=== PATIENT | female | born 1980 | race African-American/Black ===

== ENCOUNTER 2017-04-02 13:25 | Emergency (ER) | payer OTHER ==
[~2017-04-02] VITALS: Ht 152.4 cm; Wt 63.5 kg
[~2017-04-02 13:25] MED LIST: ALBUTEROL MININEB NEB; AMITRIPTYLINE H50 MG PO; ASPIRIN EC81 M1 PO; DULERA 100 MCG/13 GM IH; INDERAL20 MG PO; KLONOPIN0.5 MG PO; LISINOPRIL20 MG PO; LORTAB 10-3251 EACH PO; NEURONTIN300 MG PO; SYMBICORT INH; TOPAMAX PO; ZYRTEC PO
== END 2017-04-02 17:00 | disposition home or self-care (01) ==
LOC: CED 13:25 → CFTX 13:25
DX: H10.021 Other mucopurulent conjunctivitis, right eye (principal); F17.200 Nicotine dependence, unspecified, uncomplicated; Z88.0 Allergy status to penicillin; I10 Essential (primary) hypertension
CPT/HCPCS: 99283